=== PATIENT | male | born 1945 | race Caucasian/White ===

== ENCOUNTER 2017-09-01 12:15 | Outpatient (CLI) | payer MEDICARE, OTHER | END 2017-09-01 12:16 | disposition home or self-care (01) | LOC: LAB.R 12:15 | PROVIDERS: ATTEND Internal Medicine | DX: J06.9 Acute upper respiratory infection, unspecified (principal) | CPT/HCPCS: 87275; 87276 ==

== ENCOUNTER 2018-04-13 13:44 | Outpatient (CLI) | payer MEDICARE, OTHER | END 2018-04-13 13:45 | disposition home or self-care (01) | LOC: DI 13:44 | PROVIDERS: ATTEND Internal Medicine | DX: R01.1 Cardiac murmur, unspecified (principal); R03.0 Elevated blood-pressure reading, without diagnosis of hypertension | CPT/HCPCS: 93306 ==

== ENCOUNTER 2018-05-22 14:44 | Emergency (ER) | payer MEDICARE, OTHER ==
--- NOTE | 2018-05-22 14:56 | ED Physician Documentation ---
PD HPI CHEST PAIN - Stated complaint Stated Complaint: ELEVATED HR - Chief complaint Chief Complaint: Cardiac - History obtained from History obtained from: Patient - History of Present Illness Timing - onset: Today Timing - onset during: Light activity Timing - details: Abrupt onset, Still present Quality: No: Pressure, Tightness, Aching Location: Substernal Radiation: No: Jaw, Neck Worsened by: Exertion Associated symptoms: General Weakness, Palpitations. No: Shortness of air, Feeling faint / dizzy Similar symptoms before: Has not had sx before Recently seen: Clinic ([facility] [place] Clinic Dr. Booker for chemo) Review of Systems Constitutional: denies: Fever, Chills Nose: denies: Rhinorrhea / runny nose, Congestion Throat: denies: Sore throat Cardiac: reports: Palpitations. denies: Chest pain / pressure, Pedal edema, Calf pain Respiratory: denies: Dyspnea, Cough, Wheezing GI: denies: Abdominal Pain, Nausea, Vomiting, Diarrhea : denies: Dysuria, Frequency Neurologic: reports: Generalized weakness. denies: Focal weakness, Numbness, Near syncope PD PAST MEDICAL HISTORY - Past Medical History Cardiovascular: None Respiratory: None Endocrine/Autoimmune: None GI: None : None HEENT: None Psych: None Musculoskeletal: None Derm: None - Past Surgical History General: Other - Present Medications Home Medications: Ambulatory Orders Medication Instructions Recorded Confirmed Finasteride 1 mg ORAL DAILY 08/27/16 05/04/18 Tamsulosin [Flomax] 0.8 mg ORAL DAILY 08/27/16 05/04/18 Valacyclovir HCl [Valacyclovir] 500 mg ORAL DAILY 08/27/16 05/04/18 Ibrutinib [Imbruvica] 420 mg PO DAILY MDD 420 mg tab i 01/26/17 05/04/18 PO QD Lisinopril 10 mg PO DAILY 05/04/18 05/04/18 Metoprolol Tartrate 25 mg PO DAILY #30 tablet 05/22/18 Potassium Chloride 10 meq PO DAILY #10 tablet.er 05/22/18 - Allergies Allergies/Adverse Reactions: Allergies Allergy/AdvReac Type Severity Reaction Status Date / Time immune globulin,gamma (IgG) AdvReac Nausea Verified 02/06/17 13:29 human [From Flebogamma] PD ED PE NORMAL - Vitals Vital signs reviewed: Yes - General General: Alert and oriented X 3, No acute distress, Well developed/nourished - HEENT HEENT: Pharynx benign - Neck Neck: Supple, no meningeal sign, No adenopathy - Cardiac Cardiac: No: RRR (irregular and rate varying 110-130) - Respiratory Respiratory: Clear bilaterally - Abdomen Abdomen: Soft, Non tender - Back Back: No CVA TTP - Derm Derm: Normal color, Warm and dry - Extremities Extremities: No deformity, No tenderness to palpate, Normal ROM s pain, No ed geovany, No calf tenderness / cord - Neuro Neuro: Alert and oriented X 3, No motor deficit, Normal speech Results - Vitals Vitals: Oxygen O2 Source Room air - EKG (time done) 14:57 Rate: Rate (enter#) (128) Rhythm: Atrial fibrillation [place]: Normal Ischemia: Normal ST segments. No: ST elevation c/w ischemia, ST depression Compare to prior EKG: Old EKG unavailable 16:41 Rate: Rate (enter#) (81) Rhythm: NSR [place]: Normal Intervals: Normal AL QRS: Normal Ischemia: Normal ST segments. No: ST elevation c/w ischemia, ST depression Compare to prior EKG: Changed from prior EKG (converted to NSR) - Labs Labs: Laboratory Tests 05/22/18 05/22/18 05/22/18 15:15 15:15 15:15 WBC 7.0 RBC 4.84 Hgb 15.0 Hct 42.9 MCV 88.6 MCH 31.0 MCHC 35.0 RDW 13.6 Plt Count 95 L MPV 9.9 Neut # (Auto) 5.6 Lymph # (Auto) 1.0 L Monroe # (Auto) 0.3 Eos # (Auto) 0.0 Baso # (Auto) 0.0 Absolute Nucleated RBC 0.00 Nucleated RBC % 0.0 Sodium 140 Potassium 3.3 L Chloride 103 Carbon Dioxide 27 Anion Gap 10.0 BUN 19 Creatinine 1.2 Estimated GFR (MDRD) 60 L Glucose 101 H Calcium 9.4 Magnesium 2.1 Total Bilirubin 0.7 AST 22 ALT 21 Alkaline Phosphatase 88 B-Natriuretic Peptide 12 Total Protein 6.9 Albumin 4.3 Globulin 2.6 Albumin/Globulin Ratio 1.7 Lipase 35 TSH 05/22/18 15:15 WBC RBC Hgb Hct MCV MCH MCHC RDW Plt Count MPV Neut # (Auto) Lymph # (Auto) Monroe # (Auto) Eos # (Auto) Baso # (Auto) Absolute Nucleated RBC Nucleated RBC % Sodium Potassium Chloride Carbon Dioxide Anion Gap BUN Creatinine Estimated GFR (MDRD) Glucose Calcium Magnesium Total Bilirubin AST ALT Alkaline Phosphatase B-Natriuretic Peptide Total Protein Albumin Globulin Albumin/Globulin Ratio Lipase TSH 0.71 PD MEDICAL DECISION MAKING - ED course Complexity details: reviewed results, re-evaluated patient (converted during Procainamide infusion. Infusion stopped and he remains stable. ), considered d ifferential, d/w patient, d/w hr business partner consultant (Dr. Booker - consulted about stopping/holding chemo med as atrial fib listed as side effect. He says about 7% will get it. To hold med for now until seen in followup. ) Departure - Departure Disposition: Home, Self Care Clinical Impression: New onset atrial fibrillation Condition: Stable Record reviewed to determine appropriate education?: Yes Instructions: ED Afib Follow-Up: Kip Aleman MD [Primary Care Provider] - Parth Booker MD [Physician No Access] - Prescriptions: Metoprolol Tartrate 25 mg PO DAILY #30 tablet Potassium Chloride 10 meq PO DAILY #10 tablet.er Comments: I talked with Dr. Booker who asked that you hold your chemotherapy medication for now until further discussion with him. Hold your irbesartan blood pressure medicine as well and were substituting metoprolol 25 mg daily which will help with your blood pressure and also keep the heart rate slower. Follow-up with Dr. aleman and Dr. Sinha this coming week, call for appointments. Drink lots of fluids. Add a potassium supplement daily for the next week or so. Discharge Date/Time: 05/22/18 17:26
[2018-05-22] MEDS ORDERED: SODIUM CHLORIDE 0.9% 1,000 ML IV ONE (15:18)
[2018-05-22] MEDS ORDERED: METOPROLOL 5 MG/5 ML VIAL IVP STA ×2 (15:18→16:01)
[2018-05-22] MEDS ORDERED: PROCAINAMIDE 1,000 MG in SODIUM CHLORIDE 0.9% 240 ML IV STA (15:18)
[2018-05-22 15:32] LABS: BASOPHILS % (AUTO) 0.7 %; EOSINOPHILS % (AUTO) 0.6 %; LYMPHOCYTES % (AUTO) 14.3 %; MEAN CORPUSCULAR VOLUME 88.6 fL (80.0-94.0); MEAN PLATELET VOLUME 9.9 fL (7.4-11.4); MONOCYTES # (AUTO) 0.3 10^3/uL (0.0-1.0); MONOCYTES % (AUTO) 4.7 %; NEUTROPHILS # (AUTO) 5.6 10^3/uL (1.5-6.6); NEUTROPHILS % (AUTO) 79.7 %; PLT - PLATELET COUNT 95 10^3/uL (130-450); RED BLOOD COUNT 4.84 10^6/uL (4.70-6.10); RED CELL DISTRIBUTION WIDTH 13.6 % (12.0-15.0)
[2018-05-22 15:47] LABS: ALBUMIN 4.3 g/dL (3.2-5.5); ALBUMIN/GLOBULIN RATIO 1.7 (1.0-2.2); BILIRUBIN,TOTAL 0.7 mg/dL (0.2-1.0); CALCIUM 9.4 mg/dL (8.5-10.3); CREATININE 1.2 mg/dL (0.6-1.2); MAGNESIUM 2.1 mg/dL (1.7-2.8); TOTAL PROTEIN 6.9 g/dL (6.7-8.2)
[2018-05-22 15:54] VITALS: BP 125/82
[2018-05-22] MEDS ORDERED: POTASSIUM BICARB 25 MEQ TABLET PO STA (16:01)
[2018-05-22] MEDS ORDERED: METOPROLOL TARTRATE 50 MG TABLET PO STA (16:48)
== END 2018-05-22 17:26 | disposition home or self-care (01) ==
LOC: ED 14:44
DX: I48.91 Unspecified atrial fibrillation (principal); C95.90 Leukemia, unspecified not having achieved remission; I10 Essential (primary) hypertension; Z92.21 Personal history of antineoplastic chemotherapy
CPT/HCPCS: 36415; 80053; 83690; 83735; 83880; 84443; 85025; 93005; 96365; 96375; 99284; A9270; J2690

== ENCOUNTER 2018-12-09 08:00 | Outpatient (CLI) | payer MEDICARE, OTHER ==
[2018-12-09 18:57] LABS: BILIRUBIN,URINE NEGATIVE (NEGATIVE); GLUCOSE, URINE (UA) NEGATIVE (NEGATIVE); KETONES,URINE (UA) NEGATIVE (NEGATIVE); LEUKOCYTE ESTERASE, URINE LARGE (NEGATIVE); NITRITE,URINE NEGATIVE (NEGATIVE); OCCULT BLOOD,URINE SMALL (NEGATIVE); PH,URINE 6.5 PH (5.0-7.5); PROTEIN,URINE NEGATIVE (NEGATIVE); UROBILINOGEN,URINE 0.2 (NORMAL) E.U./dL (NORMAL)
[2018-12-09 19:00] LABS: CLARITY,URINE CLOUDY (CLEAR)
[2018-12-09 19:11] LABS: BACTERIA,URINE Rare /HPF (None Seen); RBC,URINE 0-5 /HPF (0-5); SQUAMOUS EPITHELIAL CELL,UR NONE SEEN (<= Few)
== END 2018-12-09 23:59 | disposition home or self-care (01) ==
LOC: LAB.R 08:00
PROVIDERS: ATTEND Nurse Practitioner
DX: R30.0 Dysuria (principal)
CPT/HCPCS: 81001; 81003; 87086

== ENCOUNTER 2018-12-15 08:00 | Outpatient (CLI) | payer MEDICARE, OTHER | END 2018-12-15 23:59 | disposition home or self-care (01) | LOC: LAB.R 08:00 | PROVIDERS: ATTEND Nurse Practitioner | DX: R30.0 Dysuria (principal) | CPT/HCPCS: 87086 ==

== ENCOUNTER 2019-02-18 | Outpatient (CLI) | payer MEDICARE, OTHER | END 2019-02-18 12:59 | disposition home or self-care (01) ==

== ENCOUNTER 2019-03-09 13:06 | Outpatient (CLI) | payer MEDICARE, OTHER ==
[2019-03-09 17:40] LABS: BILIRUBIN,URINE NEGATIVE (NEGATIVE); GLUCOSE, URINE (UA) NEGATIVE (NEGATIVE); KETONES,URINE (UA) NEGATIVE (NEGATIVE); LEUKOCYTE ESTERASE, URINE MODERATE (NEGATIVE); NITRITE,URINE NEGATIVE (NEGATIVE); OCCULT BLOOD,URINE MODERATE (NEGATIVE); PROTEIN,URINE NEGATIVE (NEGATIVE); UROBILINOGEN,URINE 0.2 (NORMAL) E.U./dL (NORMAL)
[2019-03-09 17:54] LABS: BACTERIA,URINE Few /HPF (None Seen); CLARITY,URINE CLOUDY (CLEAR); SQUAMOUS EPITHELIAL CELL,UR RARE Squamous (<= Few); WBC CLUMPS,URINE PRESENT
== END 2019-03-09 13:07 | disposition home or self-care (01) ==
LOC: LAB.S 13:06
PROVIDERS: ATTEND Family Medicine
DX: R30.0 Dysuria (principal)
CPT/HCPCS: 81001; 87086

== ENCOUNTER 2019-04-05 14:01 | Outpatient (CLI) | payer MEDICARE, OTHER | END 2019-04-05 14:02 | disposition home or self-care (01) | LOC: LAB.S 14:01 | PROVIDERS: ATTEND Urology | DX: R30.0 Dysuria (principal) | CPT/HCPCS: 87086 ==

== ENCOUNTER 2019-09-05 12:26 | Outpatient (CLI) | payer MEDICARE, OTHER ==
[2019-09-05 17:04] LABS: BILIRUBIN,URINE NEGATIVE (NEGATIVE); GLUCOSE, URINE (UA) NEGATIVE (NEGATIVE); KETONES,URINE (UA) NEGATIVE (NEGATIVE); LEUKOCYTE ESTERASE, URINE LARGE (NEGATIVE); NITRITE,URINE NEGATIVE (NEGATIVE); OCCULT BLOOD,URINE TRACE-INTA (NEGATIVE); PROTEIN,URINE NEGATIVE (NEGATIVE); UROBILINOGEN,URINE 0.2 (NORMAL) E.U./dL (NORMAL)
[2019-09-05 17:19] LABS: CLARITY,URINE HAZY (CLEAR)
[2019-09-05 17:39] LABS: BACTERIA,URINE None Seen /HPF (None Seen); RBC,URINE None Seen /HPF (0-5); SQUAMOUS EPITHELIAL CELL,UR NONE SEEN (<= Few)
== END 2019-09-05 12:27 | disposition home or self-care (01) ==
LOC: LAB.S 12:26
PROVIDERS: ATTEND Urology
DX: N39.0 Urinary tract infection, site not specified (principal)
CPT/HCPCS: 81001; 81003; 87077; 87086; 87181

== ENCOUNTER 2019-10-10 14:36 | Outpatient (CLI) | payer MEDICARE, OTHER | END 2019-10-10 14:37 | disposition home or self-care (01) | LOC: LAB.S 14:36 | PROVIDERS: ATTEND Nurse Practitioner | DX: R30.0 Dysuria (principal) | CPT/HCPCS: 87086 ==

== ENCOUNTER 2020-01-06 14:32 | Outpatient (CLI) | payer MEDICARE, OTHER ==
[2020-01-06 20:52] LABS: BILIRUBIN,URINE NEGATIVE (NEGATIVE); GLUCOSE, URINE (UA) NEGATIVE (NEGATIVE); KETONES,URINE (UA) NEGATIVE (NEGATIVE); LEUKOCYTE ESTERASE, URINE LARGE (NEGATIVE); NITRITE,URINE NEGATIVE (NEGATIVE); OCCULT BLOOD,URINE LARGE (NEGATIVE); PH,URINE 5.5 PH (5.0-7.5); PROTEIN,URINE 100 mg/dL (NEGATIVE); UROBILINOGEN,URINE 0.2 (NORMAL) E.U./dL (NORMAL)
[2020-01-06 21:08] LABS: CLARITY,URINE HAZY (CLEAR)
[2020-01-06 21:16] LABS: BACTERIA,URINE Many /HPF (None Seen); RBC,URINE TNTC /HPF (0-5); SQUAMOUS EPITHELIAL CELL,UR NONE SEEN (<= Few)
== END 2020-01-06 14:33 | disposition home or self-care (01) ==
LOC: LAB.S 14:32
PROVIDERS: ATTEND Physician Assistant
DX: R30.0 Dysuria (principal)
CPT/HCPCS: 81001; 87086

== ENCOUNTER 2020-04-18 15:49 | Outpatient (CLI) | payer MEDICARE, OTHER ==
[2020-04-18 20:01] LABS: BILIRUBIN,URINE NEGATIVE (NEGATIVE); GLUCOSE, URINE (UA) NEGATIVE (NEGATIVE); KETONES,URINE (UA) NEGATIVE (NEGATIVE); LEUKOCYTE ESTERASE, URINE LARGE (NEGATIVE); NITRITE,URINE NEGATIVE (NEGATIVE); OCCULT BLOOD,URINE SMALL (NEGATIVE); PH,URINE 6.5 PH (5.0-7.5); PROTEIN,URINE TRACE mg/dL (NEGATIVE); UROBILINOGEN,URINE 0.2 (NORMAL) E.U./dL (NORMAL)
[2020-04-18 20:04] LABS: CLARITY,URINE CLOUDY (CLEAR)
[2020-04-18 20:29] LABS: BACTERIA,URINE Few /HPF (None Seen); SQUAMOUS EPITHELIAL CELL,UR RARE Squamous (<= Few)
== END 2020-04-18 15:50 | disposition home or self-care (01) ==
LOC: LAB.S 15:49
PROVIDERS: ATTEND Urology
DX: N39.0 Urinary tract infection, site not specified (principal)
CPT/HCPCS: 81001; 81003; 87077; 87086; 87181

== ENCOUNTER 2022-07-16 11:35 | Outpatient (CLI) | payer MEDICARE, OTHER ==
--- NOTE | 2022-07-17 09:34 | XRAY Report ---
PROCEDURE: Wrist 3 View RT INDICATIONS: SPRAIN OF RIGHT WRIST TECHNIQUE: 3 views of the wrist were acquired. COMPARISON: None FINDINGS: Bones: No acute fractures or dislocations. No suspicious bony lesions. Severe 1st CMC and mild STT joint degenerative changes. Soft tissues: No suspicious soft tissue calcifications. IMPRESSION: 1. No acute fracture visualized. If symptoms persist, follow-up radiographs and/or CT or MRI may be h elpful for further evaluation. 2. Degenerative changes of the wrist. Reviewed by: Blake Price MD on 07/17/2022 9:32 AM [facility] Approved by: Blake Price MD on 07/17/2022 9:32 AM [facility] Station ID: [id number]
--- NOTE | 2022-07-17 09:37 | XRAY Report ---
PROCEDURE: Hand 3 View RT INDICATIONS: SPRAIN OF RIGHT HAND TECHNIQUE: 3 views of the hand(s) acquired. COMPARISON: Right wrist radiographs same day FINDINGS: Bones: No acute fractures or dislocations. No suspicious bony lesions. Severe polyarticular degene rative changes primarily in the distal distribution. Periarticular lucencies also demonstrated indete rminate for erosions or subchondral cystic change. Degenerative changes of the wrist also demonstrate d. Soft tissues: No suspicious soft tissue calcifications. IMPRESSION: 1. No acute fracture visualized. If symptoms persist, follow-up radiographs and/or CT or MRI may be h elpful for further evaluation. 2. Severe polyarticular degenerative changes. Reviewed by: Blake Price MD on 07/17/2022 9:36 AM PST Approved by: Blake Price MD on 07/17/2022 9:36 AM [facility] Station ID: [id number]
== END 2022-07-16 11:36 | disposition home or self-care (01) ==
LOC: DI.S 11:35
PROVIDERS: ATTEND Emergency Medicine
DX: M19.031 Primary osteoarthritis, right wrist (principal); M19.041 Primary osteoarthritis, right hand; M18.11 Unilateral primary osteoarthritis of first carpometacarpal joint, right hand

== ENCOUNTER 2023-03-12 13:37 | Outpatient (CLI) | payer MEDICARE, OTHER ==
--- NOTE | 2023-03-12 15:42 | XRAY Report ---
PROCEDURE: Knee 3 View RT INDICATIONS: ACUTE RIGHT KNEE PAIN TECHNIQUE: 3 views of the right knee(s) were acquired. COMPARISON: None. FINDINGS: Bones: No fractures or dislocations. No suspicious bony lesions. Tricompartmental osteoarthritic ch anges of the knee with moderate mild medial joint space narrowing and moderate severe patellofemoral joint space narrowing. Soft tissues: Small knee joint effusion. No suspicious soft tissue calcifications or masses. Athero sclerotic vascular calcifications. IMPRESSION: No acute bony abnormality. If there remains a high clinical concern for fracture, consider cross-sect ional imaging now. If pain persists, consider repeat x-ray in 10-14 days or cross-sectional imaging. Tricompartmental osteoarthritic changes, most severe within the patellofemoral compartment. Reviewed by: Sai Lloyd MD on 03/12/2023 3:41 PM PDT Approved by: Sai Lloyd MD on 03/12/2023 3:41 PM PDT Station ID: [id number]
== END 2023-03-12 23:59 | disposition home or self-care (01) ==
LOC: DI.S 13:37
PROVIDERS: ATTEND Physician Assistant
DX: M17.11 Unilateral primary osteoarthritis, right knee (principal)

== ENCOUNTER 2023-05-26 10:34 | Outpatient (CLI) | payer MEDICARE, OTHER ==
--- NOTE | 2023-05-26 14:14 | MRI Report ---
PROCEDURE: KNEE WO - RT INDICATIONS: RIGHT KNEE OSTEOARTHRITIS TECHNIQUE: Noncontrast sagittal PD fast spin echo and T2 fast spin echo with fat saturation, sagittal 3-D gradie nt sequence with fat saturation; coronal T1 spin echo and PD fast spin echo with fat saturation, and axial PD fast spin echo with fat saturation through the knee. COMPARISON: None. FINDINGS: Image quality: Excellent. There is a complex tear involving the posterior horn and body of the patient's medial meniscus extend ing to the superior and inferior joint surfaces with meniscal truncation suggesting long-standing tea rs with meniscal remodeling. Lateral meniscus, ACL, collateral ligaments, and the extensor mechanism appear within normal limits that a mild jumper's knee type pattern involving the proximal patellar te ndon. There is moderate tendinopathy involving the PCL which is otherwise intact. There is severe chondromalacia involving the patellofemoral joint with moderate chondromalacia involv ing the articular surfaces of the medial compartment and some njiq-kb-txcwsupb chondromalacia involvi ng the articular surface of the lateral compartment. There is a moderate size knee joint effusion and a szzqa-jt-jievvnlh sized Vasquez's cyst. There is lateral tilting of the patella present. IMPRESSION: 1. Complex tear involving the posterior horn and body of the patient's medial meniscus extending to s uperior and inferior joint surfaces with associated meniscal truncation suggesting long-standing tear meniscal remodeling. 2. Tqyn-ns-mtktkcwx tendinopathy involving the PCL. 3. Severe chondromalacia patellofemoral joint. 4. Lateral tilting of the patella. 5. Moderate chondromalacia articular surface of the medial compartment. 6. Mild to moderate chondromalacia articular surface of the lateral compartment. 7. Moderate size knee joint effusion. 8. Small to moderate-sized Vasquez cyst. 9. Moderate jumper's knee type pattern proximal patellar tendon. Reviewed by: Antonio Lagos MD on 05/26/2023 2:12 PM PST Approved by: Antonio Lagos MD on 05/26/2023 2:12 PM PST Station ID: [id number]
== END 2023-05-26 10:35 | disposition home or self-care (01) ==
LOC: DI 10:34
PROVIDERS: ATTEND Orthopaedic Surgery
DX: S83.231A Complex tear of medial meniscus, current injury, right knee, initial encounter (principal); M94.261 Chondromalacia, right knee; M25.461 Effusion, right knee; M71.21 Synovial cyst of popliteal space [Baker], right knee

== ENCOUNTER 2024-03-06 09:30 | Emergency (ER) | payer MEDICARE, OTHER ==
[2024-03-06 10:18] LABS: BASOPHILS % (AUTO) 0.1 %; EOSINOPHILS % (AUTO) 0.3 %; HGB - HEMOGLOBIN 15.2 g/dL (14.0-18.0); LYMPHOCYTES # (AUTO) 1.5 10^3/uL (1.5-3.5); LYMPHOCYTES % (AUTO) 19.6 %; MEAN CORPUSCULAR HEMOGLOBIN 30.3 pg (27.0-31.0); MEAN CORPUSCULAR HGB CONC 33.8 g/dL (32.0-36.0); MEAN CORPUSCULAR VOLUME 89.6 fL (80.0-94.0); MONOCYTES # (AUTO) 0.3 10^3/uL (0.0-1.0); MONOCYTES % (AUTO) 3.2 %; NEUTROPHILS % (AUTO) 76.4 %; PLT - PLATELET COUNT 130 10^3/uL (130-450); RED BLOOD COUNT 5.02 10^6/uL (4.70-6.10); RED CELL DISTRIBUTION WIDTH 12.9 % (12.0-15.0); WHITE BLOOD COUNT 7.9 x10^3/uL (4.8-10.8)
[2024-03-06 10:20] LABS: BILIRUBIN,URINE NEGATIVE (NEGATIVE); CLARITY,URINE CLEAR (CLEAR); GLUCOSE, URINE (UA) NEGATIVE (NEGATIVE); KETONES,URINE (UA) TRACE mg/dL (NEGATIVE); LEUKOCYTE ESTERASE, URINE NEGATIVE (NEGATIVE); NITRITE,URINE NEGATIVE (NEGATIVE); OCCULT BLOOD,URINE SMALL (NEGATIVE); PH,URINE 6.5 PH (5.0-7.5); PROTEIN,URINE NEGATIVE (NEGATIVE); UROBILINOGEN,URINE 0.2 (NORMAL) E.U./dL (NORMAL)
[2024-03-06 10:23] LABS: BACTERIA,URINE None Seen /HPF (None Seen); RBC,URINE 0-5 /HPF (0-5); SQUAMOUS EPITHELIAL CELL,UR NONE SEEN (<= Few)
--- NOTE | 2024-03-06 10:33 | ED Physician Documentation ---
History of Present Illness - Stated complaint Stated Complaint: STOMACH PX - Chief complaint Chief Complaint: Abd Pain - History obtained from History obtained from: Patient, Family - History of Present Illness Pain level max: 6 Pain level now: 5 - Additonal information Additional information: Patient is a 78-year-old male with a history of CLL who presents to the emergency department with epigastric abdominal pain ongoing for the past 6 months. He states that it comes and goes. Nothing really seems to make it better or worse although he did note that it seemed worse when he drank alcohol. He states he usually drinks about 1 alcoholic drink per week. No fevers. No chills. No nausea or vomiting. No diarrhea or constipation. No real changes with eating or drinking. He states that he contacted his primary care provider and has an ultrasound scheduled of his abdomen in 2 weeks. 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 Review of Systems Constitutional: denies: Fever, Chills Cardiac: denies: Chest pain / pressure, Palpitations Respiratory: denies: Dyspnea, Cough GI: denies: Vomiting, Diarrhea, Hematemesis, Bloody / black stool : denies: Dysuria, Frequency, Hesitancy Skin: denies: Rash Musculoskeletal: denies: Neck pain, Back pain Neurologic: denies: Headache PD PAST MEDICAL HISTORY - Past Medical History Cardiovascular: None Respiratory: None Endocrine/Autoimmune: None GI: None : None HEENT: None Psych: None Musculoskeletal: None Derm: None Other Past Medical History: CLL - Past Surgical History Past Surgical History: Yes General: Other - Present Medications Home Medications: Ambulatory Orders Medication Instructions Recorded Confirmed Finasteride 1 mg ORAL DAILY 08/27/16 03/06/24 Tamsulosin [Flomax] 0.8 mg ORAL DAILY 08/27/16 03/06/24 Valacyclovir HCl [Valacyclovir] 500 mg ORAL DAILY 08/27/16 03/06/24 Irbesartan 75 mg PO DAILY 09/13/18 03/06/24 Acalabrutinib [Calquence] 1 cap PO DAILY 06/20/22 03/06/24 oxyCODONE [Roxicodone] 5 - 10 mg PO Q6H PRN #14 tablet 03/06/24 MDD 6 - Allergies Allergies/Adverse Reactions: Allergies Allergy/AdvReac Type Severity Reaction Status Date / Time immune globulin,gamma (IgG) AdvReac Nausea Verified 03/06/24 09:39 human [From Rosalia] - Social History Does the pt smoke?: No Smoking Status: Never smoker Does the pt drink ETOH?: No Does the pt have substance abuse?: No - Immunizations Immunizations are current?: Yes PD ED PE NORMAL - Vitals Vital signs reviewed: Yes - General General: Alert and oriented X 3, No acute distress - HEENT HEENT: Moist mucous membranes - Neck Neck: Supple, no meningeal sign - Cardiac Cardiac: RRR, Strong equal pulses - Respiratory Respiratory: No respiratory distress, Clear bilaterally - Abdomen Abdomen: Soft, Non tender, Non distended - Derm Derm: Warm and dry - Extremities Extremities: No edema - Neuro Neuro: Alert and oriented X 3 - Psych Psych: Normal mood, Normal affect Results - Vitals Vitals: Vital Signs - 24 hr 03/06/24 03/06/24 03/06/24 09:39 11:50 13:00 Temperature 36.7 C 36.5 C Heart Rate 55 L 58 L 63 Respiratory 18 14 Rate Blood Pressure 145/70 H 149/68 H 149/86 H O2 Saturation 100 100 100 03/06/24 14:00 Temperature 36.5 C Heart Rate 78 Respiratory 16 Rate Blood Pressure 151/80 H O2 Saturation 99 Oxygen O2 Source Room air - Labs Labs: Laboratory Tests 03/06/24 03/06/24 03/06/24 10:00 10:05 10:05 WBC 7.9 RBC 5.02 Hgb 15.2 Hct 45.0 MCV 89.6 MCH 30.3 MCHC 33.8 RDW 12.9 Plt Count 130 MPV 10.0 Neut # (Auto) 6.0 Lymph # (Auto) 1.5 Bullock # (Auto) 0.3 Eos # (Auto) 0.0 Baso # (Auto) 0.0 Absolute Nucleated RBC 0.00 Nucleated RBC % 0.0 Sodium 134 L Potassium 3.7 Chloride 101 Carbon Dioxide 26 Anion Gap 7.0 BUN 11 Creatinine 1.0 Estimated GFR (MDRD) 72 L Glucose 95 Calcium 9.8 Total Bilirubin 1.1 H AST 18 ALT 16 Alkaline Phosphatase 77 Total Protein 7.2 Albumin 4.6 Globulin 2.6 Albumin/Globulin Ratio 1.8 Triglycerides Lipase 5173 H Urine Color YELLOW Urine Clarity CLEAR Urine pH 6.5 Ur Specific Chancellor 1.010 Urine Protein NEGATIVE Urine Glucose (UA) NEGATIVE Urine Ketones TRACE Urine Occult Blood SMALL H Urine Nitrite NEGATIVE Urine Bilirubin NEGATIVE Urine Urobilinogen 0.2 (NORMAL) Ur Leukocyte Esterase NEGATIVE Urine RBC 0-5 Urine WBC 4-5 Ur Squamous Epith Cells NONE SEEN Urine Bacteria None Seen Ur Microscopic Review INDICATED Urine Culture Comments NOT INDICATED 03/06/24 10:05 WBC RBC Hgb Hct MCV MCH MCHC RDW Plt Count MPV Neut # (Auto) Lymph # (Auto) Bullock # (Auto) Eos # (Auto) Baso # (Auto) Absolute Nucleated RBC Nucleated RBC % Sodium Potassium Chloride Carbon Dioxide Anion Gap BUN Creatinine Estimated GFR (MDRD) Glucose Calcium Total Bilirubin AST ALT Alkaline Phosphatase Total Protein Albumin Globulin Albumin/Globulin Ratio Triglycerides 91 Lipase Urine Color Urine Clarity Urine pH Ur Specific Chancellor Urine Protein Urine Glucose (UA) Urine Ketones Urine Occult Blood Urine Nitrite Urine Bilirubin Urine Urobilinogen Ur Leukocyte Esterase Urine RBC Urine WBC Ur Squamous Epith Cells Urine Bacteria Ur Microscopic Review Urine Culture Comments - Rads (name of study) CT abdomen pelvis Relevant Findings:: Final report received, See rad report PD Medical Decision Making - ED course Complexity details: reviewed results, re-evaluated patient, considered differential, d/w patient, d/w family, d/w wireless consultant ED course: 78-year-old male presents to the emergency department with epigastric pain ongoing for the past 6 months. Has pancreatitis on laboratory testing. Could be due to the irbesartan, could be due to his CLL. No evidence of biliary disease on CT scan. LFTs are normal. Triglycerides are normal. Does not drink alcohol. Pain well-controlled here. Tolerating p.o. without difficulty. We will place him on pain medication for home, liquid diet and have him follow-up with his oncologist in the morning. Patient is well-appearing, nontoxic. Afebrile. Patient will also stop his irbesartan. And he will discuss with his primary care provider an alternative for this. Patient counseled regarding signs and symptoms for which I believe and urgent re-evaluation would be necessary. Patient with good understanding of and agreement to plan and is comfortable going home at this time This document was made in part using voice recognition software. While efforts are made to proofread this document, sound alike and grammatical errors may occur. Departure - Departure Disposition: Home, Self Care Clinical Impression: Pancreatitis Qualifiers: Chronicity: acute Pancreatitis type: unspecified pancreatitis type Acute pancreatitis complication: unspecified Qualified Code(s): K85.90 - Acute pancreatitis without necrosis or infection, unspecified Condition: Good Instructions: ED Pancreatitis Follow-Up: LEIGHANN GIRARD ARNP [Primary Care Provider] - Parth Booker MD [Physician No Access] - Parth Booker MD [Provider Admit Priv/Credential] - Prescriptions: oxyCODONE [Roxicodone] 5 - 10 mg PO Q6H PRN #14 tablet MDD 6 PRN Reason: pain Comments: As we discussed you do have pancreatitis today. Your CT scan does not show any acute abnormalities. Your lipase is over 5000. This could be due to the CLL or it could be due to the Irbesartan. I would recommend stopping the Irbesartan and contacting Dr. Booker in the morning to discuss further care. Your triglycerides are normal. Please return if you worsen. As we discussed I would recommend starting a liquid diet for the next 24 to 48 hours. I am prescribing a short course of narcotic pain medication for you. These are potentially dangerous and addictive medications that should be used carefully. These medications may constipate you. Take an hawa-ifr-soenjjg stool softener (docusate) twice daily with plenty of water while taking these medications. If you go 24 hours without a bowel movement, take oodv-htk-xileeok miralax, per package instructions. Do not drink or drive while taking these medications. If you received narcotic or sedating medications while in the emergency department, do not drive for 24 hours. Store this medication in a safe, secure place and out of reach of children. It is a violation of federal law to give or sell this medication to another person or to use in a manner other than prescribed. The ED will not refill narcotic prescriptions, including prescriptions lost or stolen. To dispose of unwanted medications: 1. [facility] at [address] in [place] has a medication drop box. They accept prescription medications (in pill form) Thursday through Thursday 9:00 a.m. to 5:00 p.m. 2. The [facility] [employer] accepts prescription medications (in pill form only) for disposal year round. Call for more information. 3. Contact the [facility] for the next [facility] sponsored prescription drug collection event. , [phone], or [phone]; Forms: PCP List Discharge Date/Time: 03/06/24 14:01
[2024-03-06] MEDS: oxyCODONE 5 MG TABLET PO STA (10:36)
[2024-03-06 10:43] LABS: ALBUMIN 4.6 g/dL (3.2-5.5); ALBUMIN/GLOBULIN RATIO 1.8 (1.0-2.2); BILIRUBIN,TOTAL 1.1 mg/dL (0.2-1.0); CALCIUM 9.8 mg/dL (8.5-10.3); POTASSIUM 3.7 mmol/L (3.5-4.5); TOTAL PROTEIN 7.2 g/dL (6.4-8.9)
[2024-03-06] MEDS ORDERED: iohexoL-300 100 ML VIAL ONE (10:51)
--- NOTE | 2024-03-06 13:13 | CT Report ---
PROCEDURE: Abdomen/Pelvis W INDICATIONS: epigastric abd pain, h/o CLL TECHNIQUE: Helical axial CT of the abdomen and pelvis was obtained after intravenous contrast adminis tration and reformatted in multiple planes. Radiation dose reduction was achieved using automated exp osure control or adjustment of mA and/or kV according to patient size. COMPARISON: None FINDINGS: Lower thorax: The lung bases are clear. Heart size normal. No hiatal hernia. Liver: Normal in size and attenuation. No contour deformity present. Biliary system: No calcified cholelithiasis or pericholecystic inflammation. No evidence of bile du ct dilatation. Pancreas: Unremarkable without mass or inflammation evident. Spleen: Splenomegaly, 15.5 cm, displaces the left kidney medially Adrenals: Normal morphology and density. Reproductive system: Unremarkable as visualized. Urinary system: Normal renal size and attenuation. No renal calculi, hydronephrosis, or solid mass p resent. Urinary bladder unremarkable. Gastrointestinal system: The bowel appears unremarkable with no evidence of bowel obstruction or inf lammation. The stomach appears unremarkable. Multiple diverticula arise from the sigmoid colon witho ut evidence of diverticulitis. Peritoneal spaces: No mesenteric or retroperitoneal adenopathy. No free air. No free fluid. Vasculature: Atherosclerotic calcification of the abdominal aorta without evidence of aneurysm. Abdominal wall: Abdominal wall is intact without evidence of ventral or inguinal hernias. Musculoskeletal: Normal bone mineralization. No acute fractures. IMPRESSION: No acute CT findings in the abdomen and pelvis. Splenomegaly, 15.5 cm Reviewed by: Nacho Owen MD on 03/06/2024 12:11 PM [facility] Approved by: Nacho Owen MD on 03/06/2024 12:11 PM [facility] Station ID: [id number]
[2024-03-06 14:10] VITALS: BP 151/80; O2SAT 99
[2024-03-06] MEDS: iohexoL-300 100 ML VIAL IVP ONE (18:12)
== END 2024-03-06 14:01 | disposition home or self-care (01) ==
LOC: ED 09:30
DX: K85.90 Acute pancreatitis without necrosis or infection, unspecified (principal); Z79.899 Other long term (current) drug therapy
CPT/HCPCS: 36415; 74177; 80053; 81001; 83690; 84478; 85025; 99284; A9270; Q9967; 81003; 87086